=== PATIENT | female | born 1990 | race Caucasian/White ===

== ENCOUNTER 2021-03-30 07:24 | Outpatient (CLI) | payer OTHER, SELFPAY ==
--- NOTE | 2021-03-30 | ECHO_ITS ---
Patient Info Name: Clara Dickerson Age: 30 years : 1990 Gender: Female Ht: 66 in Wt: 210 lbs BSA: 2.14 m2 HR: 80 bpm BP: 148 / 97 mmHg Technical Quality: Good Exam Date: 03/30/2021 7:48 AM Exam Location: [facility] Patient Status: Outpatient Admit Date: 03/30/2021 Staff Ordering Physician: Manuel Schmitt MD Special Librarian: Pamela Luke RDCS Attending Provider: Manuel Schmitt MD Referring Physician: Oskar ANGULO; Exam Type: CA echo doppler color flow Study Info Indications R01.1 - Cardiac murmur, unspecified Complete two-dimensional, color flow and Doppler transthoracic echocardiogram is performed. Summary 1. Complete two-dimensional, color flow and Doppler transthoracic echocardiogram is performed. 2. Left ventricular chamber dimension is normal. 3. Left ventricular systolic function is normal, estimated at 60-65%. 4. The left ventricular diastolic function is normal. 5. E/e' 5 is not elevated. 6. Global longitudinal strain is normal at -18.3%. 7. Bowing of the interatrial septum to the right by 2D and color flow imaging. No obvious shunting. 8. No pulmonary hypertension, estimated pulmonary arterial systolic pressure is 19 mmHg. Left Ventricle E/e' 5 is not elevated. Global longitudinal strain is normal at -18.3%. Left ventricular chamber dimension is normal. Left ventricular systolic function is normal, estimated at 60-65%. The left ventricular diastolic function is normal. Right Ventricle Right ventricular chamber dimension is normal. Right ventricular systolic function is normal. Left Atria Left atrial chamber dimension is normal. Right Atria Right atrial chamber dimension is normal. Atrial Septum Bowing of the interatrial septum to the right by 2D and color flow imaging. No obvious shunting. Aortic Valve The aortic valve is trileaflet. There is no aortic valve stenosis. There is no aortic valve regurgitation. Pulmonic Valve There is no pulmonic regurgitation. Mitral Valve There is no mitral valve stenosis. There is no mitral valve regurgitation. Tricuspid Valve There is no tricuspid valve regurgitation. No pulmonary hypertension, estimated pulmonary arterial systolic pressure is 19 mmHg. Pericardium/Pleural There is no pericardial effusion. Inferior Vena Cava Normal inferior vena cava with >50% collapse upon inspiration consistent with normal right atrial pressure, 5 mmHg. Aorta The aortic root size at the sinus of Valsalva is normal. Left Ventricular Outflow Tract Name Value Normal LVOT 2D LVOT Diameter 2.0 cm LVOT Doppler LVOT Peak Gradient 5 mmHg LVOT Mean Gradient 3 mmHg LVOT VTI 24 cm LVOT VTI/AV VTI Ratio 1.0 LVOT Stroke Volume 75 ml LVOT CO 6.0 l/min LVOT CI 2.8 l/min/m2 Mitral Valve Name Value Normal
== END 2021-03-30 07:25 | disposition home or self-care (01) ==
PROVIDERS: PCP Emergency Medicine; Visit Provider Emergency Medicine
DX: R01.1 Cardiac murmur, unspecified (principal)
CPT/HCPCS: 93306

== ENCOUNTER 2023-09-20 01:58 | Emergency (ER) | payer OTHER, SELFPAY ==
[2023-09-20 02:01] VITALS: BP 149/92; PULSE 92; RESP 18; TEMP 36.8; O2SAT 100
--- NOTE | 2023-09-20 02:56 | ED.GENADULT ---
HPI - General Adult General Chief complaint: Abdominal Pain Stated complaint: abd pain Time Seen by Provider: 09/20/23 02:34 History of Present Illness HPI narrative: This is a 33-year-old female presenting ED with chief complaint of right upper quadrant back pain. Patient says that she started sharp pain in her shoulder blade that wraps around in her right upper quadrant. Pain is intense when it arrives but frequently resolved on its own. Patient's pain is improved drastically since she got to the emergency department. She has had had this several times over last couple weeks frequently after she ate a fatty meal. She has taken apple vinegar and Motrin with minimal relief. Patient denies fevers chills chest pain shortness of breath abdominal pain or urinary symptoms. Related Data Home Medications Medication Instructions Recorded Confirmed amitriptyline 10 mg tablet 10 mg PO QHS 07/26/22 08/22/23 buspirone 15 mg tablet 15 mg PO TID 07/26/22 08/22/23 sertraline 25 mg tablet (Zoloft) 25 mg PO DAILY 08/22/23 08/22/23 Allergies Allergy/AdvReac Type Severity Reaction Status Date / Time No Known Allergies Allergy Verified 08/22/23 08:03 FOR[facility] Past Medical History Medical History Anxiety IBS (irritable bowel syndrome) Surgical History Surgical History History of gynecological procedure D&C 05-07-2021 Family History Family History Father Stomach cancer Social History Social History Smoking status: Never smoker Alcohol intake: never Substance use: never Substance use type: does not use Do You Feel Safe in your Home?: Yes Concerned About Future Housing: Decline to Answer Difficulty Paying Gas/Electric Bills: Decline to Answer Difficulty Paying for Meds: Decline to Answer Currently Unemployed: Decline to Answer Education: Decline to Answer Difficulty w/ Childcare or Family Care: Decline to Answer Living arrangements: with family Additional living arrangements comments: Occupation/Education: occupation Additional occupation/education comments: [employer] Gender identity (if verbalized by the patient): Female Sexual Orientation (if Verbalized by the Patient): Straight or Heterosexual Exam Narrative: APPEARANCE: No apparent distress. Head: atraumatic. EYES: EOMI, NOSE: Atraumatic NECK: Trachea midline RESPIRATORY: No increased rate of breathing CARDIOVASCULAR: RRR, ABDOMINAL: Non-distended, soft nontender no guarding rebound Point of care abdominal ultrasound showed several large gallstones in the gallbladder. No gallbladder wall thickening pericholecystic fluid MUSCULOSKELETAl: No obvious deformities NEURO: Alert. Moving 4/4 extremities SKIN:: Warm, dry. Normal color PSYCHIATRIC: Normal affect Course Vital Signs Vital signs: Vital Signs Temperature 98.2 F 09/20/23 02:01 Pulse Rate 92 09/20/23 02:01 Respiratory Rate 18 09/20/23 02:01 Blood Pressure 149/92 H 09/20/23 02:01 Pulse Oximetry 100 09/20/23 02:01 Oxygen Delivery Room Air 09/20/23 02:01 Temperature 98.2 F 09/20/23 02:01 Pulse Rate 92 09/20/23 02:01 Respiratory Rate 18 09/20/23 02:01 Blood Pressure 149/92 H 09/20/23 02:01 Pulse Oximetry 100 09/20/23 02:01 Oxygen Delivery Room Air 09/20/23 02:01 Medical Decision Making MDM Narrative Medical decision making narrative: -Course: 33-year-old female presenting with right upper quadrant pain radiating to her right shoulder blade. Point of care abdominal ultrasound showed several large gallstones in the gallbladder. No evidence of cholecystitis. Suspect biliary colic. Patient is pain-free at this time. She will be discharged to follow-up with general surgery. -DDX includes but is not limite
[2023-09-20 03:22] LABS: Basophils Absolute Auto 0.1 K/mm3 (0.0-0.1); Basophils Percent Auto 0.4 % (0.2-1.2); Eosinophils Absolute Auto 0.1 K/mm3 (0-0.3); Eosinophils Percent Auto 0.7 % (0-4.4); Hematocrit 39.1 % (37.0-47.0); Hemoglobin 12.7 g/dL (12.0-15.0); Immature Granulocyte Absolute 0.04 K/mm3 (0.00-0.031); Immature Granulocyte Percent A 0.3 % (0-0.5); Lymphocytes Absolute Auto 2.05 K/mm3 (0.9-3.2); Lymphocytes Percent Auto 17.2 % (18.3-44.2); Mean Corpuscular HGB Conc 32.5 g/dl (32-36); Mean Corpuscular Hemoglobin 27.9 pg (26-34); Mean Corpuscular Volume 85.9 fl (80-100); Mean Platelet Volume 10.8 fl (7.4-10.4); Monocytes Absolute Auto 0.9 K/mm3 (0.1-0.6); Monocytes Percent Auto 7.1 % (2.6-8.5); Neutrophils Absolute Auto 8.8 K/mm3 (1.3-6.7); Neutrophils Percent Auto 74.3 % (45.5-73.1); Platelet Count Result 313 k/mm3 (150-375); Red Blood Count 4.55 M/mm3 (4.2-5.4); Red Cell Distribution Width 12.3 % (11.5-14.5); White Blood Count 11.9 K/mm3 (4.5-10.0)
[2023-09-20 04:09] LABS: Alanine Aminotransferase 21 U/L (6-35); Albumin Level 4.2 g/dL (3.5-5.1); Alkaline Phosphatase 89 U/L (38-126); Anion Gap 8 mmol/L (8-16); Aspartate Amino Transferase 34 U/L (14-36); Bilirubin,Total 0.5 mg/dL (0.2-1.3); Blood Urea Nitrogen 14 mg/dL (7-17); Calcium 9.6 mg/dL (8.4-10.2); Carbon Dioxide 24 mmol/L (22-30); Chloride 104 mmol/L (98-107); Estimated CRCL calculation 116 ml/min; Estimated Glomerular Filt Rate > 60; Glucose 101 mg/dL (65-110); Lipase 54 U/L (23-300); Potassium 4.6 mmol/L (3.4-5.0); Sodium 136 mmol/L (137-145)
== END 2023-09-20 04:30 | disposition home or self-care (01) ==
PROVIDERS: Emergency Provider Emergency Medicine; PCP Nurse Practitioner Family
DX: K80.20 Calculus of gallbladder without cholecystitis without obstruction (principal)
CPT/HCPCS: 36415; 80053; 83690; 85025; 99283

== ENCOUNTER 2023-10-01 07:43 | Outpatient (CLI) | payer OTHER, SELFPAY ==
--- NOTE | ~2023-10-01 | US_ITS ---
Limited Abdominal Sonogram: Real-time sonographic imaging of the right upper quadrant was performed. Clinical History: Cholelithiasis Findings: The liver appears normal with no evidence of mass lesion or bile duct dilatation. Main por dustin vein demonstrates normal direction of flow. The gallbladder is well distended, and contains multi ple echogenic, shadowing gallstones. Gallbladder wall mildly thickened to 4 mm. The common bile duct measures 3 mm. The visualized pancreas, aorta, and IVC are unremarkable. Impression: Cholelithiasis. Minimal gallbladder wall thickening, correlate for acute cholecystitis. Consider HIDA scan as indicated. Reviewed, dictated and finalized at location . Impression: Cholelithiasis. Minimal gallbladder wall thickening, correlate for acute cholec ystitis. Consider HIDA scan as indicated.
== END 2023-10-01 07:44 ==
PROVIDERS: PCP Nurse Practitioner Family; Visit Provider Surgery
DX: K80.20 Calculus of gallbladder without cholecystitis without obstruction (principal)
CPT/HCPCS: 76705

== ENCOUNTER 2023-10-01 08:12 | Outpatient (CLI) | payer OTHER, SELFPAY ==
[2023-10-01 15:24] LABS: Amylase 81 U/L (30-110)
== END 2023-10-01 08:13 | disposition home or self-care (01) ==
LOC: ANHGOSHLAB 08:13
PROVIDERS: PCP Nurse Practitioner Family; Visit Provider Surgery
DX: K80.20 Calculus of gallbladder without cholecystitis without obstruction (principal)
CPT/HCPCS: 36415; 82150

== ENCOUNTER 2023-10-06 00:45 | Day surgery (SDC) | payer OTHER, SELFPAY ==
[2023-09-30 14:32] VITALS: BMI 33.9
--- NOTE | 2023-09-30 14:37 | PC.NURSE ---
Report to the Outpatient Waiting Room, entrance under the green pavilion located off [facility], at time 0700 on date 10/06/23. Planned Procedure Time: 0900. Time changes happen often and if your time is changed the preop area will call you the afternoon before. - You and your visitor will be asked to self-screen and do not enter if you have any COVID symptoms. - A mask is optional within the hospital at this time. Patients may have clear liquids (water, carbonated beverages, clear teas, apple juice) until 3 hours prior to surgery with a maximum of 20 ounces. - No food from midnight until time of surgery Take the following medications with a SIP of water the morning of surgery: BUSPIRONE, SERTRALINE, TYLENOL OR PAIN PILL IF NEEDED DO NOT STOP ANY OF YOUR OTHER PRESCRIPTION MEDICATIONS PRIOR TO SURGERY ?EXCEPT THE FOLLOWING Medications to discontinue per physician: N/A Date to take last dose: N/A Please no make-up, nail armenian, hairspray, perfume, deodorant, or body powder the day of surgery. No jewelry (including any body piercings) or valuables the day of surgery, leave them at home. Please take a shower or bath the night before, or the morning of, surgery with an antibacterial soap. Wear comfortable, loose fitting clothing. - Jewelry must be removed prior to entering the operating room. Rings and piercings that are not removed may be cut off. - The hospital will not accept responsibility for valuables. - Please leave all valuables, including medications, at home the day of surgery. If you are going home after surgery, a licensed trackless trolley driver must drive you home. - NO public transportation without another adult if you receive anesthesia. - We recommend that an adult stay with you for 24 hours following discharge. - We also recommend that you do not drive, make important decision, drink alcoholic beverages, or take any drugs that were not prescribed by your health care provider for at least 24 hours after your discharge time. Follow any additional instructions given to you from your surgeon. If you or anyone in your household have experienced Covid symptoms in the past week, please notify your surgeon or the nurse liaison at the phone number below for possible testing. Telephone instructions given to ZENIA HOPPER and asked if any additional questions and then verbalized understanding. Patient advised to call surgeon office or pre surgery nurse liaison [phone] if any additional questions.
[2023-10-06] VITALS (11 sets, daily range): BP systolic 133–156; BP diastolic 75–102; PULSE 82–102; RESP 14–22; TEMP 36.2–36.6; O2SAT 90–100
[2023-10-06] MEDS: ACETAMINOPHEN 500 MG TABLET 1000 MG PO (07:24)
--- NOTE | 2023-10-06 07:25 | WPDHPUPDATE1 ---
History and Physical Update Update Date/Time: 10/06/23 07:25 History and Physical has been reviewed, including an updated exam of the patient. There are NO changes in the patient's condition. Risks, benefits, and alternatives have been discussed and questions answered. Patient agrees to proceed with procedure.
[2023-10-06] MEDS: KETOROLAC 15 MG/ML VIAL (*BKC) IV PUSH (07:35)
--- NOTE | 2023-10-06 08:45 | WPDANESEPPF ---
Anes - Initial Pre Proc Eval Procedure: Operation Date: 10/06/23 09:00 Proposed Procedures p Laparoscopic Cholecystectomy, Possible Open - Yoshi Porras MD Date/Time: 10/06/23 08:45 Surgeon: Yoshi Porras MD Pre Op Diagnosis: symp cholelithiasis Patient Data Age: 33 Gender: F Height: 1.68 m Weight: 94.5 kg Last Vital Signs Temp 36.6 C 10/06/23 07:43 Pulse 86 10/06/23 07:43 Resp 16 10/06/23 07:43 BP 134/97 H 10/06/23 07:43 Pulse Ox 100 10/06/23 07:43 O2 Del Method Room Air 10/06/23 07:43 Allergies Allergy/AdvReac Type Severity Reaction Status Date / Time No Known Allergies Allergy Verified 10/06/23 07:07 Home Medications Medication Instructions Recorded Confirmed Type amitriptyline 10 mg tablet 10 mg PO QHS 07/26/22 09/30/23 History buspirone 15 mg tablet 15 mg PO TID 07/26/22 09/30/23 History norgestimate-ethinyl estradiol 1 tablet PO DAILY #84 tabs 08/22/23 09/30/23 Rx 0.18 mg/0.215mg/0.25mg-35 mcg(28)tablet (Tri-Sprintec (28)) sertraline 25 mg tablet (Zoloft) 25 mg PO DAILY 08/22/23 09/30/23 History acetaminophen 500 mg tablet 1,000 mg PO TID PRN sammy 7 days #42 09/20/23 09/30/23 Rx tabs ibuprofen 800 mg tablet 800 mg PO TID PRN pain 7 days #21 09/20/23 09/30/23 Rx tabs hydrocodone 5 mg-acetaminophen 325 1 tablet PO Q4H PRN pain #12 tabs 09/30/23 09/30/23 Rx mg tablet Patient hx anesthesia problems: none Family hx anesthesia problems: none Results Review: All pre-operative results and documents have been reviewed as part of the pre-operative evaluation. FORMERLY [facility] Past Medical History Medical History Anxiety IBS (irritable bowel syndrome) Surgical History Surgical History History of gynecological procedure D&C 05-07-2021 Family History Family History Father Stomach cancer Social History Social History Smoking status: Never smoker Alcohol intake: current Alcohol use details: RARE Substance use: current Substance use type: marijuana Other substance usage details: RARE Do You Feel Safe in your Home?: Yes Concerned About Future Housing: Decline to Answer Difficulty Paying Gas/Electric Bills: Decline to Answer Difficulty Paying for Meds: Decline to Answer Currently Unemployed: Decline to Answer Education: Decline to Answer Difficulty w/ Childcare or Family Care: Decline to Answer Living arrangements: with family Additional living arrangements comments: Occupation/Education: occupation Additional occupation/education comments: [employer] Gender identity (if verbalized by the patient): Female Sexual Orientation (if Verbalized by the Patient): Straight or Heterosexual Spiritual care concerns: No Anes - Eval Final PreProcedure Day of Procedure 10/06/23 08:45 Patient weight: obese Heart: regular rate and rhythm Lungs: clear to auscultation Airway: Mallampati scale class II Neurological: alert and oriented Last oral intake: >/= 8 hours ASA classification: II Emergent: no Anesthetic plan: proceed Anesthesia type and monitoring: general ETT and standard monitoring Results Review: All pre-operative results and documents have been reviewed as part of the pre-operative evaluation. Informed Consent: The patient's anesthetic plan and its attendant risks and benefits were discussed with the patient/family/POA. Questions were solicited and answers provided to the satisfaction of the patient/family/POA.
[2023-10-06] MEDS: LACTATED RINGERS 1,000 ML 30 ML IV CONT ×2 (08:50→10:59)
[2023-10-06] MEDS: ceFAZolin 2 GM/D5W 50 ML 2 GM/50 ML BAG IVPB (09:10)
--- NOTE | 2023-10-06 11:03 | W.PM.PROC2 ---
Procedure Note - Detailed Date of Procedure 10/06/23 Pre-op Diagnosis Symptomatic cholelithiasis Post-op Diagnosis Same Procedure Performed Laparoscopic cholecystectomy Surgeon Yoshi Porras MD Anesthesia General Indications Patient is a 33-year-old female who presented with complaints of having epigastric right upper quadrant abdominal pain which radiated to the right shoulder after eating. Abdominal ultrasound was performed showing multiple gallstones without evidence of gallbladder wall thickening or common bile duct dilatation. She appeared to have symptoms and imaging consistent with symptomatic cholelithiasis and so she presents now for elective laparoscopic cholecystectomy. Findings Gallbladder was distended with large gallstones. No evidence of acute inflammation or chronic inflammation was seen. No adhesions to the gallbladder. Description of Procedure After informed consent was obtained patient brought to the operating room she was placed supine position and general endotracheal anesthesia was administered. The end was then prepped and draped usual sterile fashion. Time-out was then performed correctly identifying patient's well as procedure to be performed verified she was given perioperative IV antibiotics. A 5mm Optiview port was then used and the abdomen left upper quadrant the direct optical insertion. Once inside the abdomen safely to adequate pneumoperitoneum of 15mmHg of CO2. Around the umbilicus there is no evidence of adhesions I placed a 5mm periumbilical trocar port. Laparoscopic was switch to the periumbilical trocar port and then looking to the upper portions of the abdomen I could see the gallbladder which was distended but had no it adhesions of the omentum, duodenum or the stomach to the gallbladder. I placed epigastric 10mm trocar port 2 right lateral subcostal 5mm trocar ports all under direct visualization. The gallbladder was then held laparoscopic grasper at the dome and elevated over half of the liver towards the right shoulder. Second grasper used old gallbladder infundibulum. I then proceeded strip down the visceral peritoneum for the infundibular gallbladder to identify the cystic duct. Cystic duct was then dissected out circumferentially. The cystic artery is identified dissected out circumferentially as well. Posterior wall the gallbladder at the infundibulum dissected free of the liver until the critical view was obtained. At this point I then placed 2 clips proximally cystic duct and 2 clips distally high on infundibular gallbladder. Cystic duct was then divided with Endo Eva. Similar fashion cystic artery clipped and divided as well. Gallbladder was then resected off the liver utilized electrocautery. Once was free from the liver is placed into an Endo-Catch bag. Gallbladder is then brought up through the epigastric trocar port site. Unfortunately during this process the back punctured and there was some leaking of bile into the incision. A gallstone also slipped out of the gallbladder into the abdominal wall. Gallbladder and the remaining stones within her head to pathology for examination. The gallstone in the abdominal wall was retrieved and sent to pathology as well. The incision was then irrigated sterile saline solution. I then reach even pneumoperitoneum and then looking into the upper portion of the abdomen there were 3 small gallstones in the abdomen which were then retrieved with use of a 2nd Endo-Catch bag these were sent to pathology as well. I then irrigated out the right upper quadrant the abdomen the gallbladder fossa copious sterile saline solution. Hemostasis in liver bed was good there is no is a bile leak. An aspirate the fluid from the right upper quadrant the abdomen from the pelvis. Removed all the trocar ports under visualization all port sites appeared hemostatic. I then allowed the abdomen decompressed. I then irrigated the epigastric trocar port site with copious amounts of
[2023-10-06] MEDS: fentaNYL CITRATE INJ (*CRX) 100 MCG/2 ML VIAL 25 MCG IV PUSH ×8 (11:06→12:20)
[2023-10-06] MEDS: oxyCODONE HCL (*CRX) 5 MG TAB IR PO (12:33)
== END 2023-10-06 13:07 | disposition home or self-care (01) ==
PROVIDERS: PCP Nurse Practitioner Family; Visit Provider Surgery
PROC: 0FT44ZZ Resection of Gallbladder, Percutaneous Endoscopic Approach (ICD-10-PCS; CPT 47562; principal; 2023-10-06 09:00)
DX: K80.10 Calculus of gallbladder with chronic cholecystitis without obstruction (principal); F41.9 Anxiety disorder, unspecified; K58.9 Irritable bowel syndrome, unspecified; F12.90 Cannabis use, unspecified, uncomplicated; E66.9 Obesity, unspecified; Z68.33 Body mass index [BMI] 33.0-33.9, adult; Z79.1 Long term (current) use of non-steroidal anti-inflammatories (NSAID); Z79.891 Long term (current) use of opiate analgesic; Z80.0 Family history of malignant neoplasm of digestive organs
CPT/HCPCS: 47562; 88304; A9270; J0690; J1100; J1885; J2250; J2405; J2704; J3010; J7120

== ENCOUNTER 2023-12-12 09:51 | Outpatient (CLI) | payer OTHER, SELFPAY ==
--- NOTE | ~2023-12-12 | MMUS_ITS ---
EXAMINATION: MM diagnostic kina BI w trey, US breast RT limited HISTORY: Abscess of the right breast TECHNIQUE: Additional 3-D tomosynthesis images of the right breast were performed and synthetic 2-D i mages were generated. CAD analysis was submitted and interpreted. High resolution Limited right breas t ultrasound was performed. COMPARISON: None BREAST PARENCHYMAL COMPOSITION: Not dense: There are scattered areas of fibroglandular density. FINDINGS: MAMMOGRAPHIC FINDINGS: There is a mass in the lower inner quadrant of the right breast posteriorly with surrounding increase d trabeculation and density. There is no mammographic evidence for malignancy in the left breast. ULTRASOUND: Limited right breast ultrasound: At 5:00, 10 cm from the nipple there is an irregular shaped solid ap pearing hypoechoic mass measuring 2.4 x 1.9 x 1.5 cm with marginal vascularity, irregular margins and posterior acoustic enhancement. IMPRESSION: 1. Complex 2.4 cm right breast mass at 5:00, 10 cm from the nipple corresponding to the palpable abno rmality. 2. Ultrasound-guided right breast biopsy recommended. BI-RADS category 4, suspicious findings. Reviewed, dictated and finalized at location B. IMPRESSION: 1. Complex 2.4 cm right breast mass at 5:00, 10 cm from the nipple correspondin g to the palpable abnormality. 2. Ultrasound-guided right breast biopsy recommended. BI-RADS category 4, suspicious findings.
== END 2023-12-12 09:52 | disposition home or self-care (01) ==
LOC: CHSIMG 09:53
PROVIDERS: PCP Nurse Practitioner Family; Visit Provider Obstetrics & Gynecology
DX: N61.1 Abscess of the breast and nipple (principal); N61.0 Mastitis without abscess; R92.8 Other abnormal and inconclusive findings on diagnostic imaging of breast
CPT/HCPCS: 76642; 77062; 77066; G0279

== ENCOUNTER 2024-01-14 08:09 | Outpatient (CLI) | payer OTHER, SELFPAY ==
--- NOTE | ~2024-01-14 | US_ITS ---
EXAMINATION: US breast RT limited HISTORY: Breast abscess follow-up TECHNIQUE: High resolution limited right breast ultrasound was performed. COMPARISON: 12/12/2023 FINDINGS: Sonographic imaging of the right breast 5:00 position, 10 cm from the nipple, demonstrates no abscess or fluid collection. No solid mass lesion identified. There is probable focal skin thickening/hypoec hogenicity, which could reflect postprocedural change or residual inflammatory change. IMPRESSION: Previously noted abscess is completely resolved. There is mild residual skin thickening/hyperechogen icity, which could reflect postprocedural change or mild residual inflammatory change. Correlate with physical exam. BI-RADS Category 2: Benign finding(s). Reviewed, dictated and finalized at [facility]. IMPRESSION: Previously noted abscess is completely resolved. There is mild residual skin t hickening/hyperechogenicity, which could reflect postprocedural change or mild residual inflammatory change. Correlate with physical exam. BI-RADS Category 2: Benign finding(s).
== END 2024-01-14 08:10 | disposition home or self-care (01) ==
PROVIDERS: PCP Nurse Practitioner Family; Visit Provider Surgery
DX: R92.8 Other abnormal and inconclusive findings on diagnostic imaging of breast (principal)
CPT/HCPCS: 76642